=== PATIENT | male | born 1980 | race African-American/Black ===

== ENCOUNTER 2016-08-03 10:42 | Emergency (ER) | payer SELFPAY ==
[~2016-08-03] VITALS: Ht 170.2 cm; Wt 61.0 kg
[2016-08-03 11:32] VITALS: BP 110/75
[2016-08-03] MEDS ORDERED: NAPROXEN 500 MG TABLET PO STA (13:02)
[2016-08-03] MEDS ORDERED: NAPR500T3 PO (13:07)
[2016-08-03] MEDS ORDERED: CYCL10TA2 PO (13:07)
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
[2016-08-03] MEDS ORDERED: CYCLOBENZAPRINE 10 MG TABLET. PO ONE (13:15)
[2016-08-03] MEDS ORDERED: HYDROCODONE/APAP 5/325MG TABLET. PO ONE (13:15)
== END 2016-08-03 13:14 | disposition home or self-care (01) ==
LOC: ER 10:42
DX: G89.29 Other chronic pain (principal); R68.84 Jaw pain; F17.210 Nicotine dependence, cigarettes, uncomplicated; Z98.890 Other specified postprocedural states
CPT/HCPCS: 99284

== ENCOUNTER 2017-01-31 20:09 | Observation (INO) | payer SELFPAY ==
[~2017-01-31] VITALS: Ht 170.2 cm; Wt 58.3 kg
[~2017-01-31 20:09] MED LIST: CYCL10TA2 PO; NAPR500T3 PO
[2017-01-31] MEDS ORDERED: NEOMY/BACITR/POLYMYXIN OINT PACKET. TP ONE (20:30)
[2017-01-31] MEDS ORDERED: DIPHTH,PERTUSS(ACELL),TET TOX 0.5 ML DISP.SYRIN. VAX IM ONE (20:30)
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
[2017-01-31 22:22] LABS: BILIRUBIN,URINE NEGATIVE (NEG); GLUCOSE,URINE NEGATIVE (NEG); NITRITE,URINE NEGATIVE (NEG); PROTEIN,URINE NEGATIVE (NEG-TRACE); UROBILINOGEN,URINE 0.2 mg/dL (0.2 mg/dL)
[2017-01-31 22:29] LABS: BARBITURATES NEG (NEG); BENZODIAZEPINES NEG (NEG); CANNABINOIDS NEG (NEG); COCAINE NEG (NEG); METHADONE NEG (NEG); OPIATES NEG (NEG); PHENCYCLIDINE POS (NEG)
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
[2017-01-31 22:40] LABS: BACTERIA,URINE 0 /HPF (0-FEW); RBC,URINE 0 /HPF (0-2); SQUAMOUS EPITHELIAL CELL,UR OCC /LPF; WBC,URINE OCC /HPF (0-4)
[2017-01-31 23:15] LABS: BASO # 0.1 x10^3/uL (0.0-0.2); BASO % 1 % (0-3); EOS % 0 % (0-3); HEMATOCRIT 41.3 % (39.0-53.0); LYMPH # 1.8 x10^3/uL (1.0-4.8); LYMPH % 37 % (24-48); MEAN CORPUSCULAR HEMOGLOBIN 33 pg (25-35); MEAN CORPUSCULAR HGB CONC 34 g/dL (31-37); MEAN CORPUSCULAR VOLUME 96 fL (79-100); MONO % 6 % (0-9); NEUT % 55 % (31-73); PLATELET COUNT 254 x10^3/uL (140-400); RED CELL DISTRIBUTION WIDTH 14.2 % (11.5-14.5); WHITE BLOOD COUNT 4.8 x10^3/uL (4.0-11.0)
[2017-01-31 23:23] LABS: CALCIUM 8.6 mg/dL (8.5-10.1); CREATININE 0.8 mg/dL (0.7-1.3); GFR 130.9; POTASSIUM 4.1 mmol/L (3.5-5.1)
[2017-01-31 23:30] LABS: ALBUMIN 3.9 g/dL (3.4-5.0); DIRECT BILIRUBIN 0.1 mg/dL (0.0-0.2); TOTAL BILIRUBIN 0.3 mg/dL (0.2-1.0); TOTAL PROTEIN 6.6 g/dL (6.4-8.2)
[2017-01-31 23:40] LABS: ETHANOL 319 mg/dL (0-10)
[2017-02-01] MEDS ORDERED: ONDANSETRON PF 4 MG/2 ML VIAL. IV PRN (02:15)
[2017-02-01] MEDS ORDERED: MORPHINE SULFATE 2 MG/ML DISP.SYRIN. IV PRN (02:15)
[2017-02-01] MEDS: IV NORMAL SALINE 1000ML BAG 1,000 ML IV SCH ×2 (03:28→12:12)
[2017-02-01 04:27] VITALS: BP 108/66
[2017-02-01 07:00] VITALS: BP 92/61
[2017-02-01] MEDS ORDERED: NEOMY/BACITR/POLYMYXIN OINT PACKET. TP PRN (08:00)
[2017-02-01] MEDS ORDERED: HYDROcodone/APAP 5/325MG 1 TAB TABLET PO PRN (09:15)
[2017-02-01 11:00] VITALS: BP 100/55
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
== END 2017-02-01 16:15 | disposition home or self-care (01) ==
LOC: ER 20:09 → 4 NORTH 02-01 02:10
PROVIDERS: ADMIT Internal Medicine; ATTEND Internal Medicine
DX: F10.10 Alcohol abuse, uncomplicated (principal); Y09 Assault by unspecified means; S00.83XA Contusion of other part of head, initial encounter; W19.XXXA Unspecified fall, initial encounter; Y92.89 Other specified places as the place of occurrence of the external cause; Y93.89 Activity, other specified; Y99.8 Other external cause status
CPT/HCPCS: 36415; 70450; 72125; 80048; 80076; 80307; 80329; 81001; 83690; 83930; 85025; 90471; 90715; 96361; 96374; 96375; 99285; G0378; G0480; J2270; J2405; J7030; G0379; G0479